=== PATIENT | female | born 1965 | race Caucasian/White ===

== ENCOUNTER → 2020-08-03 09:33 | Outpatient (BNVA) | payer BC, SELFPAY | PROVIDERS: Family Provider Family Medicine; PCP Family Medicine; Visit Provider Nurse Practitioner Family | DX: J04.0 Acute laryngitis (principal); R69 Illness, unspecified; J01.10 Acute frontal sinusitis, unspecified | CPT/HCPCS: 87400 ==

== ENCOUNTER → 2020-08-06 16:54 | Outpatient (BNVA) | payer BC, SELFPAY | PROVIDERS: Family Provider Family Medicine; PCP Family Medicine; Visit Provider Nurse Practitioner Family | DX: J18.9 Pneumonia, unspecified organism (principal); R50.9 Fever, unspecified; R05 Cough; R06.02 Shortness of breath | CPT/HCPCS: 71046 ==

== ENCOUNTER → 2020-08-10 11:13 | Outpatient (BNVA) | payer BC, SELFPAY | PROVIDERS: Family Provider Family Medicine; PCP Family Medicine; Visit Provider Nurse Practitioner Family | DX: J18.9 Pneumonia, unspecified organism (principal); R05 Cough; R06.02 Shortness of breath | CPT/HCPCS: 71046 ==